=== PATIENT | male | born 1960 | race American Indian/Alaskan Native ===

== ENCOUNTER 2021-06-05 16:25 | Observation (INO) | payer SELFPAY ==
--- NOTE | 2021-06-05 16:33 | Event Note ---
ED Screening Note Date of service: 06/05/21 Time: 16:32 ED Screening Note: 61-year-old male presents to the ER with complaints of slurred speech. He states that he noticed the symptoms yesterday around 4:30 PM, and he states that it got worse this morning. He states that he still feels like his speech is slurred. He also reports tingling in his right upper extremity. He denies any focal weakness, vision changes, difficulty swallowing, dizziness, headache or any additional symptoms. He denies any past history of CVA or TIA. He does report a history of hypertension, but he states that he stopped taking his medications few years ago. This initial assessment/diagnostic orders/clinical plan/treatment(s) is/are subject to change based on patients health status, clinical progression and re- assessment by fellow clinical providers in the ED. Further treatment and workup at subsequent clinical providers discretion. Patient/guardian urged not to elope from the ED as their condition may be serious if not clinically assessed and managed. Initial orders include: Stroke order set
--- NOTE | 2021-06-05 17:10 | Cat Scan Report ---
CT HEAD WITHOUT CONTRAST INDICATION / CLINICAL INFORMATION: Stroke symptoms. TECHNIQUE: All CT scans at this location are performed using CT dose reduction for ALARA by means of automated e xposure control. COMPARISON: None available. FINDINGS: HEMORRHAGE: No evidence of intracranial hemorrhage or extra-axial fluid collection. EXTRA-AXIAL SPACES: Cortical sulci and sylvian fissures are normal in size and configuration. Basilar cisterns have an unremarkable appearance. VENTRICULAR SYSTEM: The third and lateral ventricles are normal in size with no indication of hydroce phalus or central atrophy. CEREBRAL PARENCHYMA: Several well-circumscribed foci of decreased brain pa renchymal attenuation are present in a bilateral gangliocapsular distribution compatible with remote small deep infarction locations. A similar finding is seen in the white matter of the left frontal lo be (forceps minor) There is no indication of previous cortical infarction. MIDLINE SHIFT OR HERNIATION: There is no mass effect. CEREBELLUM / BRAINSTEM: Brainstem has an unremarkable appearance. Age related cerebellar atrophy is n oted. MIDLINE STRUCTURES:Pituitary gland has an unremarkable appearance. No abnormalities are seen in the p ineal region. INTRACRANIAL VESSELS:Calcified atherosclerotic plaque is present along the course of the cavernous se gments of both internal carotid arteries. Similar findings are seen at the distal vertebral arteries. ORBITS: visualized portions of the orbits have an unremarkable appearance. SOFT TISSUES of HEAD: No significant abnormality. CALVARIUM: Evaluation of bone windows reveals no abnormalities. PARANASAL SINUSES / MASTOID AIR CELLS: Paranasal sinuses are free from inflammatory mucosal disease. Mastoid air cells are normally pneumatized. IMPRESSION: 1. 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 2. No indication of acute ischemic injury on noncontrast head CT. Consider MRI brain for further eval uation for stroke if clinically warranted. 3. No evidence of intracranial hemorrhage. Signer Name: Israel Puga MD Signed: 06/05/2021 5:06 PM Workstation Name: [id number] [facility] [id number]
[2021-06-05 17:11] LABS: Basophils % (Auto) 0.5 % (0.0-1.8); Eosinophils % (Auto) 0.9 % (0.0-4.3); Hematocrit 41.2 % (35.5-45.6); Hemoglobin 13.7 gm/dl (11.8-15.2); Lymphocytes # (Auto) 1.4 K/mm3 (1.2-5.4); Lymphocytes % (Auto) 30.3 % (13.4-35.0); Mean Corpuscular HGB Conc 33 % (32-34); Mean Corpuscular Volume 91 fl (84-94); Monocytes # (Auto) 0.4 K/mm3 (0.0-0.8); Monocytes % (Auto) 8.4 % (0.0-7.3); Platelet Count 226 K/mm3 (140-440); Red Blood Count 4.51 M/mm3 (3.65-5.03); Red Cell Distribution Width 13.1 % (13.2-15.2)
[2021-06-05 17:19] LABS: Creatine Kinase MB 1.8 ng/mL (0.0-4.0)
[2021-06-05 17:22] LABS: Alanine Aminotransferase 13 units/L (7-56); BUN/Creatinine Ratio 10; Blood Urea Nitrogen 10 mg/dL (9-20); Calcium 9.2 mg/dL (8.4-10.2); Hemolysis Index 4
[2021-06-05 17:24] LABS: INR 0.94 (0.87-1.13)
[2021-06-05 17:25] LABS: Partial Thromboplastin Time 30.5 Sec. (24.2-36.6); Thrombin Time 17.3 Sec. (15.1-19.6)
--- NOTE | 2021-06-05 17:51 | Emergency Department Report ---
ED General Adult HPI - General Chief complaint: Neuro Symptoms/Deficit Stated complaint: SLURRED SPEECH, NUMBNESS HAND Time Seen by Provider: 06/05/21 17:05 Source: patient Mode of arrival: Ambulatory Limitations: No Limitations - History of Present Illness Initial comments: The patient presents to the emergency department with a chief complaint of slur red speech that started at 4:30 PM yesterday. Patient states that the slurred speech became more noticeable to him this morning as patient was speaking to her friend. He denies having a headache and denies any weakness. He denies chest pain, shortness breath, or abdominal pain. Patient denies having a medical history but and states years ago he was started on the blood pressure medication that he only took for 3 weeks. -: Sudden Radiation: non-radiation Severity scale (0 -10): 0 Consistency: constant Improves with: none Worsens with: none Associated Symptoms: denies other symptoms Treatments Prior to Arrival: none - Related Data Allergies Allergy/AdvReac Type Severity Reaction Status Date / Time No Known Allergies Allergy Verified 06/05/21 16:27 ED Review of Systems ROS: Stated complaint: SLURRED SPEECH, NUMBNESS HAND Other details as noted in HPI Comment: All other systems reviewed and negative Constitutional: denies: chills, fever Eyes: denies: eye pain, eye discharge, vision change ENT: denies: ear pain, throat pain Respiratory: denies: cough, shortness of breath, wheezing Cardiovascular: denies: chest pain, palpitations Endocrine: no symptoms reported Gastrointestinal: denies: abdominal pain, nausea, diarrhea Genitourinary: denies: urgency, dysuria Musculoskeletal: denies: back pain, joint swelling, arthralgia Skin: denies: rash, lesions Neurological: other (Slurred speech). denies: headache, weakness, paresthesias Psychiatric: denies: anxiety, depression Hematological/Lymphatic: denies: easy bleeding, easy bruising ED Past Medical Hx - Past Medical History Previous Medical History?: No - Surgical History Past Surgical History?: No - Social History Smoking Status: Never Smoker Substance Use Type: None ED Physical Exam - General Limitations: No Limitations General appearance: alert, in no apparent distress - Head Head exam: Present: atraumatic, normocephalic - Eye Eye exam: Present: normal appearance, PERRL, EOMI - ENT ENT exam: Present: mucous membranes moist - Neck Neck exam: Present: normal inspection - Respiratory Respiratory exam: Present: normal lung sounds bilaterally. Absent: respiratory distress - Cardiovascular Cardiovascular Exam: Present: regular rate, normal rhythm. Absent: systolic murmur, diastolic murmur, rubs, gallop - GI/Abdominal GI/Abdominal exam: Present: soft, normal bowel sounds. Absent: distended, tenderness - Rectal Rectal exam: Present: deferred - Extremities Exam Extremities exam: Present: normal inspection - Back Exam Back exam: Present: normal inspection - Neurological Exam Neurological exam: Present: alert, oriented X3, CN II-XII intact. Absent: motor sensory deficit - Psychiatric Psychiatric exam: Present: normal affect, normal mood - Skin Skin exam: Present: warm, dry, intact, normal color. Absent: rash ED Course Vital Signs 06/05/21 06/05/21 16:33 17:11 Temperature 98.2 F Pulse Rate 78 Respiratory 20 Rate Blood Pressure 211/109 [Left] O2 Sat by Pulse 99 96 Oximetry ED Medical Decision Making - Lab Data Result diagrams: 06/05/21 16:43 06/05/21 16:43 Lab Results 06/05/21 06/05/21 06/05/21 Range/Units 16:43 16:43 16:43 WBC 4.6 (4.5-11.0) K/mm3 RBC 4.51 (3.65-5.03) M/mm3 Hgb 13.7 (11.8-15.2) gm/dl Hct 41.2 (35.5-45.6) % MCV 91 (84-94) fl MCH 31 (28-32) pg MCHC 33 (32-34) % RDW 13.1 L (13.2-15.2) % Plt Count 226 (140-440) K/mm3 Lymph % (Auto) 30.3 (13.4-35.0) % [place] % (Auto) 8.4 H (0.0-7.3) % Eos % (Auto) 0.9 (0.0-4.3) % Baso % (Auto) 0.5 (0.0-1.8) % Lymph # (Auto) 1.4 (1.2-5.4) K/mm3 [place] # (Auto) 0.4 (0.0-0.8) K/mm3 Eos # (Auto) 0.0 (0.0-0.4) K/mm3 Baso # (Auto) 0.0 (0.0-0.1) K/mm3 Seg Neutrophils % 59.9 (40.0-70.0) % Seg Neutrophils # 2.8 (1.8-7.7) K/mm3 PT 13.6 (12.2-14.9) Sec. INR 0.94 (0.87-1.13) APTT 30.5 (24.2-36.6) Sec. Thrombin Time 17.3 (15.1-19.6) Sec. Sodium 142 (137-145) mmol/L Potassium 3.1 L (3.6-5.0) mmol/L Chloride 103.5 (98-107) mmol/L Carbon Dioxide 28 (22-30) mmol/L Anion Gap 14 mmol/L BUN 10 (9-20) mg/dL Creatinine 1.0 (0.8-1.3) mg/dL Estimated GFR > 60 ml/min BUN/Creatinine Ratio 10 % Glucose 131 H (75-100) mg/dL Calcium 9.2 (8.4-10.2) mg/dL Total Bilirubin 1.80 H (0.1-1.2) mg/dL AST 18 (5-40) units/L ALT 13 (7-56) units/L Alkaline Phosphatase 64 (35-129) units/L Total Creatine Kinase 219 H (55-170) units/L CK-MB (CK-2) 1.8 (0.0-4.0) ng/mL CK-MB (CK-2) Rel Index 0.8 (0-4) Troponin T < 0.010 (0.00-0.029) ng/mL Total Protein 6.6 (6.3-8.2) g/dL Albumin 4.0 (3.9-5) g/dL Albumin/Globulin Ratio 1.5 % - EKG Data -: EKG Interpreted by Me EKG shows normal: sinus rhythm Rate: bradycardia - Radiology Data Radiology results: report reviewed Critical care attestation.: If time is entered above; I have spent that time in minutes in the direct care of this critically ill patient, excluding procedure time. ED Disposition Clinical Impression: Slurred speech Disposition: 01 HOME / SELF CARE / HOMELESS Is pt being admited?: No Does the pt Need Aspirin: No Condition: Stable - Assessment Assessment Interval: Baseline - Level of Consciousness 1a. Level of Consciousness: alert/keenly responsive - LOC Questions 1b. LOC Questions: answers both correctly - LOC Command 1c. LOC Commands: performs tasks correctly - Best Gaze 2. Best Gaze: normal - Visual 3. Visual: no visual loss - Facial Palsy 4. Facial Palsy: normal symmetrical movement - Motor Arm 5a. Motor Arm Left: no drift 5b. Motor Arm Right: no drift - Motor Leg 6a. Motor Leg Left: no drift 6b. Motor Leg Right: no drift - Limb Ataxia 7. Limb Ataxia: absent - Sensory 8. Sensory: normal - Best Language 9. Best Language: no aphasia - Dysarthria 10. Dysarthria: mild/moderate dysarthria - Extinction and Inattention 11. Extinction/Inattention: no abnormality - Scoring Total Score: 1 Stroke Severity: Minor Stroke
[2021-06-05] MEDS ORDERED: HYDROmorphone 1 MG/1 ML INJ IV PRN (17:53)
[2021-06-05] MEDS ORDERED: METOCLOPRAMIDE 10 MG TAB PO PRN (17:53)
[2021-06-05] MEDS ORDERED: ACETAMINOPHEN 325 MG TAB PO PRN (17:53)
[2021-06-05] MEDS ORDERED: ONDANSETRON 4 MG/2 ML INJ IV PRN (17:53)
[2021-06-05] MEDS ORDERED: oxyCODONE /ACETAMINOPHEN 5-325MG TAB PO PRN (17:53)
[2021-06-05] MEDS ORDERED: MAGNESIUM HYDROXIDE (MOM) ORAL LIQD UDC PO PRN (17:53)
[2021-06-05] MEDS ORDERED: PROMETHAZINE 25 MG RECT SUPP PR PRN (17:53)
--- NOTE | 2021-06-05 18:02 | History and Physical Report ---
History of Present Illness Chief complaint: I cannot talk right History of present illness: 61 YO Male with No PMH presents to ED for evaluation. Patient reports "I cannot talk right". Pt states that he has experienced slurred speech that began yesterday at 16:30hrs. Pt states he did not seek medical attention at that time. Patient reports that amount awakening from sleep this morning he experienced worsening symptoms while speaking to a friend. Patient was transported to [facility] via private vehicle for further care and evaluation of the aforementioned symptoms. The patient was seen and evaluated in the emergency department. All lab and imaging studies reviewed. Patient was found to have a neurologic deficit with clinical symptoms consistent with CVA. CT scan of the brain was conducted and the patient was found to have bilateral ganglial basilar infarct. The patient was placed in observation status and admitted to telemetry and initiated on CVA protocol. Patient denies fever, chills, chest pain, pal pitation, productive cough, skin rash, recent contact, or known exposure to COVID-19. No prior admission for review. No medication listed at time of admission for reconciliation. Advanced care planning conducted in ED. Past History Past Medical History: No medical history, other (Reviewed) Past Surgical History: No surgical history, Other (Reviewed) Social history: single Family history: no significant family history, other (Reviewed) Medications and Allergies Allergies Allergy/AdvReac Type Severity Reaction Status Date / Time No Known Allergies Allergy Verified 06/05/21 16:27 Active Meds: Active Medications Acetaminophen (Acetaminophen 325 Mg Tab) 650 mg PO Q4H PRN PRN Reason: Pain, Mild (1-3) Aspirin (Aspirin 325 Mg Tab) 325 mg PO QDAY MONTY Atorvastatin Calcium (Atorvastatin 40 Mg Tab) 40 mg PO QHS [place]ONTY Bisacodyl (Bisacodyl 10 Mg Rect Supp) 10 mg [place] QDAY PRN PRN Reason: Constipation Hydromorphone HCl (Hydromorphone 1 Mg/1 Ml Inj) 0.5 mg IV Q23H PRN PRN Reason: Pain , Severe (7-10) Magnesium Hydroxide (Magnesium Hydroxide (Mom) Oral Liqd Udc) 30 ml PO Q4H PRN PRN Reason: Constipation Metoclopramide HCl (Metoclopramide 10 Mg Tab) 10 mg PO Q6H PRN PRN Reason: Nausea And Vomiting Ondansetron HCl (Ondansetron 4 Mg/2 Ml Inj) 4 mg IV Q8H PRN PRN Reason: Nausea And Vomiting Oxycodone/Acetaminophen (Oxycodone /Acetaminophen 5-325mg Tab) 1 tab PO Q16H PRN PRN Reason: Pain, Moderate (4-6) Promethazine HCl (Promethazine 25 Mg Rect Supp) 25 mg UT Q6H PRN PRN Reason: Nausea And Vomiting Sodium Chloride (Sodium Chloride 0.9% 10 Ml Flush Syringe) 10 ml INJ PRN PRN PRN Reason: LINE FLUSH Review of Systems Constitutional: no weight loss, no weight gain, no fever, no chills Ears, nose, mouth and throat: no ear pain, no tinnitis, no decreased hearing, no nose pain, no nasal congestion Cardiovascular: no chest pain, no palpitations, no edema, no syncope Respiratory: no cough, no excessive sputum, no shortness of breath Gastrointestinal: no abdominal pain, no nausea, no diarrhea, no constipation, no change in bowel habits Genitourinary Male: no hematuria, no urinary frequency, no urinary hesitancy, no nocturia, no genital pain Rectal: no pain, no bleeding Musculoskeletal: no neck stiffness, no neck pain, no low back pain, no shooting leg pain Integumentary: no rash, no redness, no wounds Neurological: no head injury, no paralysis, no numbness, no tingling, no tremors Psychiatric: no anxiety, no sleep disturbances, no hypersomnia, no change in appetite, no change in libido, no suicidal ideation Endocrine: no cold intolerance, no heat intolerance, no excessive thirst, no polydipsia, no nocturia, no flushing Hematologic/Lymphatic: no easy bruising, no easy bleeding Exam - Constitutional Vitals: Temp Pulse Resp BP Pulse Ox 98.2 F 78 20 211/109 96 06/05/21 16:33 06/05/21 16:33 06/05/21 16:33 06/05/21 16:33 06/05/21 17:11 General appearance: Present: mild distress - EENT Eyes: Present: PERRL ENT: hearing intact, clear oral mucosa - Neck Neck: Present: supple, normal ROM - Respiratory Respiratory effort: normal Respiratory: bilateral: CTA - Cardiovascular Heart Sounds: Present: S1 & S2. Absent: rub, click - Extremities Extremities: pulses symmetrical, No edema Peripheral Pulses: within normal limits - Abdominal General gastrointestinal: Present: soft, non-tender, non-distended, normal bowel sounds Male genitourinary: Present: normal - Integumentary Integumentary: Present: clear, warm, dry - Musculoskeletal Musculoskeletal: gait normal, strength equal bilaterally - Psychiatric Psychiatric: appropriate mood/affect, intact judgment & insight - Neurologic Neurologic: CNII-XII intact, moves all extremities HEART Score - HEART Score Troponin: Troponin T < 0.010 ng/mL (0.00-0.029) 06/05/21 16:43 Results - Labs CBC & Chem 7: 06/05/21 16:43 06/05/21 16:43 Labs: Abnormal lab results 06/05/21 06/05/21 Range/Units 16:43 16:43 RDW 13.1 L (13.2-15.2) % [place] % (Auto) 8.4 H (0.0-7.3) % Potassium 3.1 L (3.6-5.0) mmol/L Glucose 131 H (75-100) mg/dL Total Bilirubin 1.80 H (0.1-1.2) mg/dL Total Creatine Kinase 219 H (55-170) units/L Assessment and Plan - Patient Problems (1) CVA (cerebral vascular accident) Current Visit: Yes Status: Acute Plan to address problem: CVA protocol: CT head, neuro check, seizure precaution, aspiration precautions, physical therapy consulted, Occupational Therapy consulted, speech therapy consulted, antiplatelet therapy, carotid Doppler, echocardiogram, lipid panel, statin therapy. (2) DVT prophylaxis Current Visit: Yes Status: Acute Plan to address problem: SCD to bilateral lower extremities while in bed, patient is ambulatory (3) Advance care planning Current Visit: Yes Status: Acute Plan to address problem: Disease education conducted, care plan discussed, diagnosis discussed, prognosis discussed, patient is full code, patient knowledges understanding and agreement with care plan. +30 minutes.
[2021-06-06 05:41] LABS: Chol/HDL Ratio 2.72 %
[2021-06-06] MEDS: ASPIRIN 325 MG TAB PO SCH (10:31)
--- NOTE | 2021-06-06 13:38 | Vascular Lab Report ---
VL carotid duplex BILAT INDICATION / CLINICAL INFORMATION: stroke COMPARISON: None available. FINDINGS: No stenosis: No significant atherosclerosis. RIGHT CAROTID: - CCA velocity: 79 cm/sec. - ICA peak systolic velocity: 119 cm/sec. - ICA/CCA PSV Ratio: Less than 2 Right Vertebral Artery: Antegrade flow. LEFT CAROTID: - CCA velocity: 81 cm/sec. - ICA peak systolic velocity: 28 cm/sec. - ICA/CCA PSV Ratio: Less than 2 Left Vertebral Artery: Antegrade flow. IMPRESSION: 1. No occlusion or hemodynamically significant stenosis of the bilateral carotid arteries. Velocity criteria are extrapolated from diameter data as defined by the Society of Radiologists in Ul trasound Consensus Conference, Radiology 2003; 229;340-346. NO STENOSIS (NORMAL) * Plaque = none; ICA PSV < 125 cm/sec; ICA/CCA PSV Ratio < 2.0 <50% STENOSIS * Plaque < 50%; ICA PSV < 125 cm/sec; ICA/CCA PSV Ratio < 2.0 50-69% STENOSIS * Plaque > 50%; ICA PSV = 125-230 cm/sec; ICA/CCA PSV Ratio = 2.0-4.0 >70% BUT <100% STENOSIS * Plaque > 50%; ICA PSV > 230 cm/sec; ICA/CCA PSV Ratio > 4.0 NEAR OCCLUSION * Plaque = visible lumen; ICA PSV = high/low/none; ICA/CCA PSV Ratio = variable TOTAL OCCLUSION * Plaque = no lumen; ICA PSV = none; ICA/CCA PSV Ratio = N/A Signer Name: Alex Long MD Signed: 06/06/2021 1:33 PM Workstation Name: [email or web address] [id number]
--- NOTE | 2021-06-06 16:19 | Consultation ---
History of Present Illness Consult date: 06/06/21 Reason for Consult: CVA History of present illness: 61 YO Male with No PMH presents to ED for evaluation. Patient reports "I cannot talk right". Pt states that he has experienced slurred speech that began yesterday at 16:30hrs. Pt states he did not seek medical attention at that time. Patient reports that amount awakening from sleep this morning he experienced worsening symptoms while speaking to a friend. Patient was transported to [facility] private vehicle for further care and evaluation of the aforementioned symptoms. The patient was seen and evaluated in the emergency department. All lab and imaging studies reviewed. Patient was found to have a neurologic deficit with clinical symptoms consistent with CVA. CT scan of the brain was conducted and the patient was found to have bilateral ganglial basilar infarct. The patient was placed in observation status and admitted to telemetry and initiated on CVA protocol. Patient denies fever, chills, chest pain, palpitation, productive cough, skin rash, recent contact, or known exposure to COVID-19. No prior admission for review. No medication listed at time of admission for reconciliation. Advanced care planning conducted in ED. The patient comes in for acute dysarthria . ? Some improvement . No [place] . Past History Past Medical History: No medical history, other (Reviewed) Past Surgical History: No surgical history, Other (Reviewed) Social history: single Family history: no significant family history, other (Reviewed) Medications and Allergies Allergies Allergy/AdvReac Type Severity Reaction Status Date / Time No Known Allergies Allergy Verified 06/05/21 16:27 Home Medications Medication Instructions Recorded Confirmed Last Taken Type Aspirin EC [Halfprin EC] 81 mg PO QDAY #30 tablet. 06/06/21 Unknown Rx AtorvaSTATin [Lipitor] 40 mg PO QHS #30 tablet 06/06/21 Unknown Rx Active Meds: Active Medications Acetaminophen (Acetaminophen 325 Mg Tab) 650 mg PO Q4H PRN PRN Reason: Pain, Mild (1-3) Aspirin (Aspirin 325 Mg Tab) 325 mg PO QDAY [facility] Last Admin: 06/06/21 10:31 Dose: 325 mg Documented by: Atorvastatin Calcium (Atorvastatin 40 Mg Tab) 40 mg PO QHS [facility] Last Admin: 06/05/21 22:10 Dose: 40 mg Documented by: Bisacodyl (Bisacodyl 10 Mg Rect Supp) 10 mg [place] QDAY PRN PRN Reason: Constipation Hydralazine HCl (Hydralazine 25 Mg Tab) 50 mg PO Q8HR MONTY Hydromorphone HCl (Hydromorphone 1 Mg/1 Ml Inj) 0.5 mg IV Q23H PRN PRN Reason: Pain , Severe (7-10) Magnesium Hydroxide (Magnesium Hydroxide (Mom) Oral Liqd Udc) 30 ml PO Q4H PRN PRN Reason: Constipation Metoclopramide HCl (Metoclopramide 10 Mg Tab) 10 mg PO Q6H PRN PRN Reason: Nausea And Vomiting Ondansetron HCl (Ondansetron 4 Mg/2 Ml Inj) 4 mg IV Q8H PRN PRN Reason: Nausea And Vomiting Oxycodone/Acetaminophen (Oxycodone /Acetaminophen 5-325mg Tab) 1 tab PO Q16H PRN PRN Reason: Pain, Moderate (4-6) Promethazine HCl (Promethazine 25 Mg Rect Supp) 25 mg [place] Q6H PRN PRN Reason: Nausea And Vomiting Sodium Chloride (Sodium Chloride 0.9% 10 Ml Flush Syringe) 10 ml IV PRN PRN PRN Reason: LINE FLUSH Physical Examination - Vital Signs Vital Signs: Vital Signs Temp Pulse Resp BP Pulse Ox 98.2 F 78 20 211/109 99 06/05/21 16:33 06/05/21 16:33 06/05/21 16:33 06/05/21 16:33 06/05/21 16:33 - Physical Exam Narrative exam: The patient is alert .Mild Dyarthria ,Moves all 4 extremity . Results - Laboratory Findings CBC and BMP: 06/05/21 16:43 06/05/21 16:43 Abnormal Lab Findings: Abnormal Labs 06/05/21 06/05/21 06/06/21 16:43 16:43 11:33 RDW 13.1 L [place] % (Auto) 8.4 H Potassium 3.1 L Glucose 131 H POC Glucose 134 H Total Bilirubin 1.80 H Total Creatine Kinase 219 H Assessment and Plan 1. CVA - Possible Small Vessel CVA Awaits MRI results . 2. Head CT reviewed . 3. Risk Factors for CVA discussed . 4. Continue all Home Medications . 5. Follow up with Out Patient Neurology is strongly recommended . 6. Call Back With Questions . Dr. Mohsen ASHRAF
[2021-06-06] MEDS: hydrALAZINE 25 MG TAB PO SCH ×2 (16:30→21:33)
--- NOTE | 2021-06-06 19:21 | Magnetic Resonance Report ---
MRI BRAIN WITHOUT CONTRAST INDICATION / CLINICAL INFORMATION: possible CVA. TECHNIQUE: Multiplanar, multisequence MR images of the brain were obtained. COMPARISON: None available. FINDINGS: BRAIN / INTRACRANIAL CONTENTS: A 13 x 13 x 5 mm diameter acute small deep infarction is observed involving left putamen extending up into the left internal capsule. The lesion is associated with restricted diffusion with correspondin g decreased signal intensity on ADC map imaging. FLAIR and T2 hyperintensity are observed in the same location. Microvascular ischemic changes are present. These may mask of the presence of remote small deep infarctions in a gangliocapsular distribution. Dilated perivascular spaces are also observed in the white matter of the centrum semiovale of both cerebral hemispheres. This is a manifestation of p arenchymal volume loss. Enlargement of the cortical sulci and ventricular system is noted. This is somewhat greater than expe cted for the patient's stated age of 61 years. Periventricular and deep white matter hyperintensities are noted consistent with moderate microvascular ischemic changes. There is no mass effect. No evide nce of intracranial hemorrhage or extra-axial fluid collection is seen. There is no indication of rem ote cortical infarction. The brainstem and cerebellum have an unremarkable appearance. CRANIOCERVICAL JUNCTION: No abnormalities are identified at the craniocervical junction. VASCULAR FLOW-VOIDS: Normal flow-voids are present within the major intracranial vessels. ORBITS: The orbits have an unremarkable appearance. SINUSES / MASTOIDS: There is no indication of inflammatory disease in the paranasal sinuses or mastoi d air cells. IMPRESSION: 1. Abnormal study demonstrates an acute, small (13 x 13 x 5 mm) deep infarction involving left gangli ocapsular structures as described in detail above. Signer Name: Israel Puga MD Signed: 06/06/2021 7:17 PM Workstation Name: [id number]
[2021-06-07] MEDS: hydrALAZINE 25 MG TAB PO SCH (06:37)
[2021-06-07] MEDS ORDERED: hydrALAZINE 25 MG TAB PO SCH ×2 (08:31→14:00)
--- NOTE | 2021-06-07 08:32 | Discharge Summary ---
Providers - Providers Date of Admission: 06/05/21 17:53 Date of discharge: 06/07/21 Attending physician: NICKY HERNÁNDEZ 06/05/21 17:53 Occupational Therapy Evaluate and Treat [CONS] Routine Comment: Reason For Exam: Neuro deficits Physical Therapy Evaluation and Treat [CONS] Routine Comment: Reason For Exam: Neuro deficits 06/05/21 17:54 Speech Therapy Evaluation and Treat [CONS] Routine Reason For Exam: swallow eval 06/06/21 09:18 Consult to Physician [CONS] Routine Comment: Consulting Provider: ALVIN PINEDA Physician Instructions: Reason For Exam: possible CVA Primary care physician: [employer] [employer] Hospitalization Condition: Stable Disposition: 01 HOME / SELF CARE / HOMELESS Final Discharge Diagnosis (Prints w/discharge instructions): --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 --Hypertension, uncontrolled Time spent for discharge: 34 minmutes Exam - Constitutional Vitals: Temp Pulse Resp BP Pulse Ox 97.5 F L 56 L 20 105/61 96 06/07/21 07:57 06/07/21 06:37 06/07/21 07:57 06/07/21 07:57 06/07/21 08:17 Plan Activity: advance as tolerated Weight Bearing Status: Weight Bear as Tolerated Diet: low fat, low salt Additional Instructions: Follow-up with neurologist in 1 week. Outpatient speech therapy and PT Follow up with: PRIMARY CARE, [Primary Care Provider] - 7 Days Prescriptions: AtorvaSTATin [Lipitor] 40 mg PO QHS #30 tablet amLODIPine 10 mg PO QDAY #30 tablet Aspirin 325 mg PO QDAY #30 tablet Aspirin EC [Halfprin EC] 81 mg PO QDAY #30 tablet.
[2021-06-07] MEDS ORDERED: amLODIPine 10 MG TAB PO SCH (10:00)
[2021-06-07] MEDS: ASPIRIN 325 MG TAB PO SCH (11:00)
--- NOTE | 2021-06-07 13:56 | Electrocardiograph Report ---
[facility] Test Date: 2021-06-05 Test Time: 17:27:11 Pat Name: RUPERTO VILLAVICENCIO Department: Room: A477 1 Gender: M Carbonator: JOSE : 1960 Requested By: SAGAR DONG Order Number: [id number] Reading MD: Toño Flynn Measurements Intervals [place] Rate: 56 P: 40 [place]: 176 QRS: 19 QRSD: 91 T: 10 QT: 481 QTc: 464 Interpretive Statements Sinus bradycardia Probable left atrial enlargement No previous ECG available for comparison Electronically Signed On 06-07-2021 13:56:02 EDT by Toño Flynn
[2021-06-07 15:50] VITALS: BP 125/75
== END 2021-06-07 18:15 | disposition home or self-care (01) ==
LOC: ED 16:25 → 4A 17:53
PROVIDERS: ADMIT Internal Medicine; ATTEND Internal Medicine
DX: I63.9 Cerebral infarction, unspecified (principal); I63.531 Cerebral infarction due to unspecified occlusion or stenosis of right posterior cerebral artery; I10 Essential (primary) hypertension; R47.81 Slurred speech; R29.701 NIHSS score 1; R29.818 Other symptoms and signs involving the nervous system; Z79.82 Long term (current) use of aspirin
CPT/HCPCS: 36415; 70450; 70551; 80053; 80061; 82550; 82553; 82962; 84484; 85025; 85610; 85670; 85730; 92507; 92523; 92610; 93005; 93306; 93880; 97112; 97116; 97161; 99285; A9270; G0378